=== PATIENT | male | born 1975 | race Caucasian/White ===

== ENCOUNTER 2016-02-11 00:07 | Emergency (ER) | payer OTHER ==
[2016-02-11 01:01] VITALS: BP_SYST 119; BP_SYST 148; BP_DIAS 73; BP_DIAS 81; RESP 16
[2016-02-11] MEDS ORDERED: SODIUM CHLOR 0.9% 1000 ML INJ 1,000 ML IV ONE (01:22)
[2016-02-11] MEDS ORDERED: SODIUM CHLORIDE 0.9% FLUSH 5 ML FLUSH IVF PRN (01:30)
--- NOTE | 2016-02-11 01:33 | PD ---
HPI Chief Complaint: Syncope/Near-Syncope Time Seen by Provider: 01:22 Travel History International Travel<30 days: No Contact w/Intl Traveler<30days: No Traveled to known affect area: No History of Present Illness HPI 40-year-old male presents to the emergency department by private transportation the care of his spouse for evaluation of witnessed near syncopal episode. Patient reports 1 week ago today he underwent microdiscectomy of the lumbar spine at L5-S1 and has been doing well except for persistent paresthesia affecting the left foot and intermittently the left thigh. Patient was told to expect these symptoms by his surgeon and has an appointment tomorrow scheduled with his managing provider. 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 No lifting or straining. Patient has not taken any pain medications for his postsurgical healing discomfort as he has not needed anything. Asians had no bladder or bowel dysfunction. Patient's had no saddle anesthesia. Patient's had no weakness in the lower extremities bilaterally. Patient also has not had any recent febrile illness. Patient's had no chest pain or reported shortness of breath. Reportedly this evening around 10:30 prior to arrival to the emergency department he had been sitting on the couch with his spouse talking had decided to get up to go to the bathroom and noted on his way to the bathroom that he felt a little lightheaded but then after urinating as he was returning back from the bathroom to the couch she became very lightheaded and had a near syncopal episode which was witnessed by his spouse. Patient was able to get to a chair and did not fall or have any injury or trauma and was able to sit down in a chair. Patient broke out into a profuse sweat and states that he felt short of breath. Patient states symptoms lasted for approximately 30 minutes and had to less intense episodes while he was recovering. Patient felt uncomfortable going to bed so he comes to the emergency room at this time for evaluation. Patient denies any personal history of CAD hypertension dyslipidemia diabetes tobacco use does have family history of CAD and his father with 2 stents at age 70. Patient has not noticed any report of lower extremity swelling. Patient's had no recent long distance travel. No personal history family history of clotting disorder. PFSH Past Medical History Narrative Medical Lumbar herniated disc; microdiscectomy; FH cad; no tobacco use; nursing notes reviewed Diminished Hearing: No Herniated Disk: Yes Tetanus Vaccination: > 5 Years Influenza Vaccination: No Past Surgical History Neurologic Surgery: Yes (L4 AND S1 HERNIATED DISC - MICRO INCISION WITH STERRI STRIPS ) Social History Alcohol Use: Yes (BEER ) Tobacco Use: No Substance Use: No Allergies-Medications (Allergen,Severity, Reaction): Coded Allergies: No Known Allergies (Unverified , 02/11/16) Reported Meds & Prescriptions Reported Meds & Active Scripts Active No Active Prescriptions or Reported Medications Review of Systems Except as stated in HPI: all other systems reviewed are Neg General / Constitutional: No: Fever Eyes: No: Visual changes HENT: Positive: Vertigo, Lightheadedness, No: Headaches, Neck Pain Cardiovascular: Positive: Diaphoresis, No: Chest Pain or Discomfort, Palpitations Respiratory: Positive: Shortness of Breath Gastrointestinal: Positive: Nausea, No: Vomiting, Diarrhea, Abdominal Pain Genitourinary: No: Dysuria, Flank Pain Musculoskeletal: No: Myalgias, Arthralgias Skin: No Rash Neurologic: Positive: Dizziness, Paresthesia (x 1 week to left foot -- "improving"), No: Weakness, Syncope, Focal Abnormalities, Coordination Problem Psychiatric: No: Anxiety Endocrine: No: Polyuria Hematologic/Lymphatic: No: Lymph Node Enlargement Physical Exam Narrative GENERAL: Well-developed well-nourished male in no acute distress no respiratory distress; GCS 15 SKIN: Warm and dry. HEAD: Atraumatic. Normocephalic. EYES: Pupils equal and round. Extraocular muscles intact. No scleral icterus. No injection or drainage. ENT: No nasal bleeding or discharge. Mucous membranes pink and moist. Airway is patent. NECK: Trachea midline. No JVD. Supple no meningismus no nuchal rigidity CARDIOVASCULAR: Regular rate and rhythm. RESPIRATORY: No accessory muscle use. Clear to auscultation. Breath sounds equal bilaterally. GASTROINTESTINAL: Abdomen soft, non-tender, nondistended. Hepatic and splenic margins not palpable. MUSCULOSKELETAL: Extremities without clubbing, cyanosis, or edema. No obvious deformities. Bilateral radial and dorsalis pedis pulses 2+ to palpation. NEUROLOGICAL: Awake and alert. GCS 15. No obvious cranial nerve deficits. Motor grossly within normal limits. Five out of 5 muscle strength in the arms and legs. No pronator drift. Normal speech. PSYCHIATRIC: Appropriate mood and affect; insight and judgment normal. Data Data Last Documented VS Vital Signs Date Time Temp Pulse Resp B/P Pulse Ox O2 Delivery O2 Flow Rate FiO2 02/11/16 03:00 72 16 120/65 96 Room Air 02/11/16 02:53 98.4 Orders Electrocardiogram (02/11/16 01:22) Basic Metabolic Panel (Bmp) (02/11/16 01:22) Complete Blood Count With Diff (02/11/16 01:22) Magnesium (Mg) (02/11/16:22) Ckmb (Isoenzyme) Profile (02/11/16 01:22) Troponin I (02/11/16:22) Act Partial Throm Time (Ptt) (02/11/16:22) Prothrombin Time / Inr (Pt) (02/11/16:22) Urinalysis - C+S If Indicated (02/11/16 01:22) Chest, Single Ap (02/11/16 01:22) Ct Brain W/O Iv Contrast(Rout) (02/11/16 01:22) Blood Glucose (02/11/16 01:22) Ecg Monitoring (02/11/16 01:22) Iv Access Insert/Monitor (02/11/16 01:22) Oximetry (02/11/16 01:22) Sodium Chloride 0.9% Flush (Ns Flush) (02/11/16 01:30) Sodium Chlor 0.9% 1000 Ml Inj (Ns 1000 M (02/11/16 01:22) Orthostatic Vital Signs (02/11/16 01:22) Ct Pulmonary Angiogram (02/11/16 ) Iohexol 350 Inj (Omnipaque 350 Inj) (02/11/16 05:22) Troponin I (02/11/16 05:57) Labs Laboratory Tests Test 02/11/16 02/11/16 02/11/16 01:30 01:45 06:05 Urine Color YELLOW Urine Turbidity CLEAR Urine pH 5.5 Urine Specific [place] 1.016 Urine Protein NEG mg/dL Urine Glucose (UA) NEG mg/dL Urine Ketones NEG mg/dL Urine Occult Blood NEG Urine Nitrite NEG Urine Bilirubin NEG Urine Leukocyte Esterase NEG Urine RBC 0-2 /hpf Urine WBC 0-2 /hpf Urine Squamous Epithelial 0-5 /hpf Cells Urine Bacteria NONE /hpf Microscopic Urinalysis Comment CULT NOT INDICATED White Blood Count 10.5 TH/MM3 Red Blood Count 4.81 MIL/MM3 Hemoglobin 14.9 GM/DL Hematocrit 43.3 % Mean Corpuscular Volume 90.0 FL Mean Corpuscular Hemoglobin 31.0 PG Mean Corpuscular Hemoglobin 34.5 % Concent Red Cell Distribution Width 11.5 % Platelet Count 208 TH/MM3 Mean Platelet Volume 8.3 FL Neutrophils (%) (Auto) 57.8 % Lymphocytes (%) (Auto) 27.7 % Monocytes (%) (Auto) 8.1 % Eosinophils (%) (Auto) 1.9 % Basophils (%) (Auto) 4.5 % Neutrophils # (Auto) 6.1 TH/MM3 Lymphocytes # (Auto) 2.9 TH/MM3 Monocytes # (Auto) 0.8 TH/MM3 Eosinophils # (Auto) 0.2 TH/MM3 Basophils # (Auto) 0.5 TH/MM3 CBC Comment DIFF FINAL Differential Comment Prothrombin Time 10.8 SEC Prothromb Time International 1.0 RATIO Ratio Activated Partial 25.7 SEC Thromboplast Time Sodium Level 141 MEQ/L Potassium Level 4.0 MEQ/L Chloride Level 104 MEQ/L Carbon Dioxide Level 28.4 MEQ/L Anion Gap 9 MEQ/L Blood Urea Nitrogen 23 MG/DL Creatinine 0.97 MG/DL Estimat Glomerular Filtration 86 ML/MIN Rate Random Glucose 103 MG/DL Calcium Level 8.8 MG/DL Magnesium Level 2.3 MG/DL Total Creatine Kinase 69 U/L Troponin I LESS THAN 0.02 LESS THAN 0.02 NG/ML NG/ML MDM Medical Decision Making Medical Screen Exam Complete: Yes Emergency Medical Condition: Yes Medical Record Reviewed: Yes Interpretation(s) EKG: sinus rhythm rate [address] elevation or injury pattern change or ectopy noted CBC is automated differential values are grossly normal range Coagulation studies within normal limits Urinalysis is normal CK total 69, not elevated troponin I less than 0.02, not elevated Metabolic panel mild elevated BUN otherwise values grossly within normal range with normal bicarbonate anion gap and creatinine of 0.97 Last Impressions Chest X-Ray 02/11/16 0122 Signed Impressions: Service Date/Time: Thursday, February 11, 2016 02:53 - CONCLUSION: The lungs are clear. Cholo Rocha MD CT Angiography 02/11/16 0000 Signed Impressions: Service Date/Time: Thursday, February 11, 2016 05:15 - CONCLUSION: The study is negative for pulmonary embolism. Cholo Rocha MD CT brain w/o:CONCLUSION: Negative noncontrast CT brain. Cholo Rocha MD on February 11, 2016 at 5:49 Board Certified Radiologist. This report was verified electronically. trop I #2: less than 0.02, Differential Diagnosis Near-syncope, syncope, arrhythmia, post micturition syncope, PE, CAD, ACS, anemia, epidural abscess, electrolyte disturbance, dehydration Narrative Course IV access obtained specimens collected and sent for resulting EKG performed which is sinus rhythm with no acute ST elevation or injury pattern change or ectopy noted Lab values found to be grossly normal range Patient waiting to go to [facility] for CT imaging studies as CT machine [place] is broken Patient has returned from CT at [facility] imaging studies have been resulted CT brain noncontrast reveals no acute abnormality CT pulmonary angiogram reveals no evidence of PE or acute process patient feels well is aware of plan for second troponin I with plan to discharge patient to home with close follow-up with primary care provider and surgeon as scheduled. As 6:36 AM second troponin I is less than 0.02. Patient is stable for outpatient management. Patient's case has been discussed with covering physician for Dr. Ventura. Physician Communication Physician Communication discussed with Dr Duong --outpatient follow up with Dr Ventura PCP Diagnosis Primary Impression: Vasovagal near syncope Additional Impression: Micturition syncope Referrals: Neurosurgeon 1 day Keep scheduled appointment with your back surgeon Primary Care Physician call for appointment Patient Instructions: General Instructions Departure Forms: Tests/Procedures, Work Release Special Instructions: No work times one day Additional Instructions: Increase fluid hydration Follow-up with your primary care physician call office in a.m. to schedule follow-up appointment Keep appointment as scheduled with your surgeon Return to the emergency department for any concerns or change in condition; such as pain, fever, vomiting, or weakness No work times one day Rest Monitor temperature for fever take acetaminophen as needed for fever 100.4F or greater Scripts No Active Prescriptions or Reported Meds Disposition: DISCHARGE HOME Condition: Stable Kathryn Roca MD Feb 11, 2016 01:33
[2016-02-11 01:37] LABS: BLOOD, URINE NEG (NEG); GLUCOSE,URINE NEG (NEG); KETONE, URINE NEG (NEG); NITRITE,URINE NEG (NEG); PH, URINE 5.5 (5.0-8.5)
[2016-02-11 01:40] LABS: URINE COLOR YELLOW (YELLW/STRAW)
[2016-02-11 01:41] LABS: COMMENT (UR) CULT NOT INDICATED; CULTURE IF INDICATED CULT NOT INDICATED; RBC, URINE 0-2 /hpf (0-3); SQUAMOUS EPITHELIAL CELL URINE 0-5 /hpf (0-5); WBC, URINE 0-2 /hpf (0-5)
[2016-02-11 01:53] LABS: AUTOMATED NEUTROPHIL # 6.1 TH/MM3 (1.8-7.7); BASOPHIL # 0.5 TH/MM3 (0-0.2); BASOPHIL % 4.5 % (0.0-2.0); EOSINOPHIL # 0.2 TH/MM3 (0-0.4); EOSINOPHIL % 1.9 % (0.0-4.0); HEMATOCRIT 43.3 % (39.0-51.0); HEMO FLAGS DIFF FINAL; LYMPH % 27.7 % (9.0-44.0); LYMPHOCYTE # 2.9 TH/MM3 (1.0-4.8); MEAN CORPUSCULAR HGB CONC 34.5 % (32.0-36.0); MONO % 8.1 % (0.0-8.0); NEUT % 57.8 % (16.0-70.0); PLATELET COUNT 208 TH/MM3 (150-450); RED BLOOD COUNT 4.81 MIL/MM3 (4.50-5.90); RED CELL DISTRIBUTION WIDTH 11.5 % (11.6-17.2); WHITE BLOOD COUNT 10.5 TH/MM3 (4.0-11.0)
[2016-02-11 02:01] LABS: CHLORIDE 104 MEQ/L (98-107); SODIUM (NA) 141 MEQ/L (136-145)
[2016-02-11 02:04] LABS: ANION GAP 9 MEQ/L (5-15); BICARBONATE 28.4 MEQ/L (21.0-32.0); BLOOD UREA NITROGEN 23 MG/DL (7-18); MAGNESIUM 2.3 MG/DL (1.5-2.5)
[2016-02-11 02:05] LABS: APTT (PATIENT) 25.7 SEC (24.3-30.1); PROTHROMBIN TIME - PATIENT 10.8 SEC (9.8-11.6)
[2016-02-11 02:07] LABS: GLOMERULAR FILTRATION RATE 86 ML/MIN (>89)
[2016-02-11 02:11] VITALS: BP 115/57; PULSE 79; RESP 18; TEMP 98.4; O2SAT 98
[2016-02-11 02:21] LABS: CREATINE KINASE 69 U/L (39-308)
[2016-02-11 02:53] VITALS: BP 115/57; PULSE 79; RESP 18; TEMP 98.4; O2SAT 98
[2016-02-11 03:00] VITALS: BP 120/65; PULSE 72; RESP 16; O2SAT 96
--- NOTE | 2016-02-11 03:19 | RADHPO ---
EXAM DATE/TIME: 02/11/2016 02:53 [facility] COMPARISON: No previous studies available for comparison. INDICATIONS : Syncope. MEDICAL HISTORY : None. SURGICAL HISTORY : None. ENCOUNTER: Initial ACUITY: 1 day PAIN SCORE: 3/10 LOCATION: Bilateral chest FINDINGS: A single view of the chest demonstrates the lungs to be symmetrically aerated without evidence of mas s, infiltrate or effusion. No evidence of pneumothorax. The cardiomediastinal contours are unremarka ble. Osseous structures are intact. CONCLUSION: The lungs are clear. Cholo Rocha MD on February 11, 2016 at 3:17 Board Certified Radiologist. This report was verified electronically.
[2016-02-11] MEDS ORDERED: IOHEXOL 350 MG/ML 10 ML VIAL (for RAD DIAG) IV ONE (05:22)
--- NOTE | 2016-02-11 05:34 | RADHPO ---
EXAM DATE/TIME: 02/11/2016 05:15 [facility] COMPARISON: No previous studies available for comparison. INDICATIONS : Near syncopal episode. IV CONTRAST: 70 cc Omnipaque 350 (iohexol) IV RADIATION DOSE: 22.64 CTDIvol (mGy) MEDICAL HISTORY : None SURGICAL HISTORY : None. ENCOUNTER: Initial ACUITY: 1 day PAIN SCALE: 0/10 LOCATION: chest TECHNIQUE: Volumetric scanning of the chest was performed using a pulmonary embolism protocol MIP images were re constructed. Using automated exposure control and adjustment of the mA and/or kV according to patien t size, radiation dose was kept as low as reasonably achievable to obtain optimal diagnostic quality images. FINDINGS: PULMONARY ARTERIES: No filling defects are seen in the pulmonary arteries through the segmental level. LUNGS: There is no consolidation or pneumothorax . No concerning pulmonary nodule is visualized. PLEURAE: There is no pleural thickening or pleural effusion. MEDIASTINUM: There is good visualization of the great vessels of the middle mediastinum. No evidence of mediastin al or hilar adenopathy/mass. CONCLUSION: The study is negative for pulmonary embolism. Cholo Rocha MD on February 11, 2016 at 5:31 Board Certified Radiologist. This report was verified electronically.
--- NOTE | 2016-02-11 05:51 | RADHPO ---
EXAM DATE/TIME: 02/11/2016 05:12 [facility] COMPARISON: No previous studies available for comparison. INDICATIONS : Near syncopal episode. RADIATION DOSE: 64.96 CTDIvol (mGy) MEDICAL HISTORY : None SURGICAL HISTORY : None. ENCOUNTER: Initial ACUITY: 1 day PAIN SCALE: 0/10 LOCATION: cranial TECHNIQUE: Multiple contiguous axial images were obtained of the head. Using automated exposure control and adj ustment of the mA and/or kV according to patient size, radiation dose was kept as low as reasonably a chievable to obtain optimal diagnostic quality images. FINDINGS: CEREBRUM: The ventricles are normal for age. No evidence of midline shift, mass lesion, hemorrhage or acute in farction. No extra-axial fluid collections are seen. POSTERIOR FOSSA: The cerebellum and brainstem are intact. The 4th ventricle is midline. The cerebellopontine angle i s unremarkable. EXTRACRANIAL: The visualized portion of the orbits is intact. SKULL: The calvaria is intact. No evidence of skull fracture. CONCLUSION: Negative noncontrast CT brain. Cholo Rocha MD on February 11, 2016 at 5:49 Board Certified Radiologist. This report was verified electronically.
--- NOTE | 2016-02-11 14:26 | EKG ---
Date Performed: 02/11/2016 Time Performed: 00:45:18 PTAGE: 40 years EKG: Sinus arrhythmia Normal ECG NO PREVIOUS TRACING DOCTOR: Kaur Waldron Interpretating Date/Time 02/11/2016 14:21:53
== END 2016-02-11 06:52 | disposition home or self-care (01) ==
LOC: PHEFT 00:07
DX: R55 Syncope and collapse (principal); I49.8 Other specified cardiac arrhythmias; Z98.890 Other specified postprocedural states; R06.02 Shortness of breath; R61 Generalized hyperhidrosis
CPT/HCPCS: 70450; 71010; 71275; 80048; 81001; 82550; 83735; 84484; 85025; 85610; 85730; 93005; 96360; 99285; J7030; Q9967